=== PATIENT | male | born 1955 | race Caucasian/White ===

== ENCOUNTER 2016-09-07 10:59 | Emergency (ER) | payer MEDICARE, OTHER, MEDICAID ==
[2016-09-07 11:06] VITALS: BP 105/73; PULSE 68; RESP 18; TEMP 97.5; O2SAT 97
== END 2016-09-07 13:45 | disposition home or self-care (01) | DRG 74 ==
LOC: ED 10:59
DX: G61.81 Chronic inflammatory demyelinating polyneuritis (principal)
CPT/HCPCS: 99283